=== PATIENT | male | born 1960 | race African-American/Black ===

== ENCOUNTER 2021-08-20 22:00 | Emergency (ER) | payer OTHER, SELFPAY ==
[2021-08-20 22:18] VITALS: BP 161/90; PULSE 94; RESP 18; TEMP 36.9; O2SAT 98
[2021-08-21] VITALS (14 sets, daily range): BP systolic 163–183; BP diastolic 91–109; PULSE 65–94; RESP 11–22; TEMP 36.7–37; O2SAT 96–99
--- NOTE | 2021-08-21 00:12 | ECG_ITS ---
Measurements Intervals [place] Rate: 85 P: 59 LA: 196 QRS: -14 QRSD: 101 T: 16 QT: 361 QTc: 429 Interpretive Statements SINUS RHYTHM POSSIBLE LEFT ATRIAL ENLARGEMENT DELAYED PRECORDIAL R/S TRANSITION POSSIBLE LEFT VENTRICULAR HYPERTROPHY MINIMAL Q WAVES- HIGH LATERAL LEADS BORDERLINE ECG Electronically Signed On 08-21-2021 6:32:49 CDT by Nathaniel Rivas D.O.
[2021-08-21 00:34] LABS: Basophils Percent Auto 0.4 % (0.2-1.2); Eosinophils Absolute Auto 0.1 K/mm3 (0-0.3); Eosinophils Percent Auto 0.7 % (0-4.4); Hematocrit 43.4 % (42.0-52.0); Hemoglobin 15.3 g/dL (14.0-18.0); Immature Granulocyte Absolute 0.03 K/mm3 (0.00-0.031); Immature Granulocyte Percent A 0.3 % (0-0.5); Lymphocytes Absolute Auto 1.04 K/mm3 (0.9-3.2); Lymphocytes Percent Auto 10.9 % (18.3-44.2); Mean Corpuscular HGB Conc 35.3 g/dl (32-36); Mean Corpuscular Hemoglobin 35.2 pg (26-34); Mean Corpuscular Volume 99.8 fl (80-100); Mean Platelet Volume 10.2 fl (7.4-10.4); Monocytes Absolute Auto 1.1 K/mm3 (0.1-0.6); Monocytes Percent Auto 11.2 % (2.6-8.5); Neutrophils Absolute Auto 7.3 K/mm3 (1.3-6.7); Neutrophils Percent Auto 76.5 % (45.5-73.1); Platelet Count Result 179 k/mm3 (150-375); Red Blood Count 4.35 M/mm3 (4.6-6.20); Red Cell Distribution Width 14.3 % (11.5-14.5); White Blood Count 9.6 K/mm3 (4.5-10.0)
[2021-08-21 00:51] LABS: Anion Gap 10 mmol/L (8-16); Blood Urea Nitrogen 14 mg/dL (9-20); Calcium 9.1 mg/dL (8.4-10.2); Carbon Dioxide 28 mmol/L (22-30); Chloride 95 mmol/L (98-107); Estimated CRCL calculation 68 ml/min; Estimated Glomerular Filt Rate > 60; Glucose 104 mg/dL (65-110); Potassium 4.4 mmol/L (3.4-5.0); Sodium 133 mmol/L (137-145)
[2021-08-21 01:14] LABS: Troponin I < 0.012 ng/mL (0.000-0.034)
--- NOTE | 2021-08-21 03:30 | ED.GENADULT ---
HPI - General Adult General Chief complaint: Unspecified Stated complaint: Smoked pot, high bp Time Seen by Provider: 08/20/21 23:53 History of Present Illness HPI narrative: Patient is a 60-year-old male who presents ER after feeling odd after smoking pot. Patient reports he still feels high. Apparently police arrived at his home and people said he was not acting right. He is unsure what they were concerned about and they had him leave. He is awake alert and oriented x3. No reports of chest pain or shortness of breath. Reports he would like to just rest. Related Data Allergies Allergy/AdvReac Type Severity Reaction Status Date / Time No Known Allergies Allergy Verified 08/21/21 00:06 Review of Systems Review of Systems: All systems reviewed & are unremarkable except as noted in HPI and below Constitutional: Constitutional: Denies chills, Denies fever(s) and Denies weakness Cardiovascular: Cardiovascular: Denies chest pain, Denies radiating jaw, neck or arm pain and Denies palpitations Respiratory: Respiratory: Denies cough, Denies dyspnea and Denies wheezing Gastrointestinal: Gastrointestinal: Denies abdominal pain, Denies diarrhea, Denies nausea and Denies vomiting Musculoskeletal: Musculoskeletal: Denies back pain, Denies myalgias and Denies muscle weakness Neurologic: Denies Abnormal speech present, Denies syncope and Denies focal weakness PMFSH Past Medical History Medical History (Updated 08/21/21 @ 03:41 by Juno Naidu MD) Hypertension Surgical History Surgical History (Updated 08/21/21 @ 03:39 by Juno Naidu MD) History of thoracotomy Social History Social History (Updated 08/21/21 @ 03:33 by Juno Naidu MD) Substance use type: marijuana Exam Narrative: GENERAL: Well-appearing, well-nourished, and in no acute distress. HEAD: Normocephalic, atraumatic. ENT: Mucous membranes moist. CHEST: Clear to auscultation. No respiratory distress. HEART: Regular rate and rhythm. Normal peripheral pulses. ABDOMEN: Soft, nontender, nondistended. EXTREMITIES: Normal range of motion. No edema. SKIN: Warm, dry, no rash. NEURO: Alert and oriented x3. PSYCH: Normal mood and affect. Course Course Emergency Course: Patient resting comfortably. Has no complaints for discharge home. Vital Signs Vital signs: Vital Signs Temperature 98.4 F 09/24/21 22:18 Pulse Rate 94 08/20/21 22:18 Respiratory Rate 18 08/20/21 22:18 Blood Pressure 161/90 H 08/20/21 22:18 Pulse Oximetry 98 08/20/21 22:18 Temperature 98.6 F 08/21/21 00:02 Pulse Rate 69 08/21/21 02:47 Respiratory Rate 16 08/21/21 02:47 Blood Pressure 182/109 H 08/21/21 02:47 Pulse Oximetry 98 08/21/21 02:47 Medical Decision Making Vital Signs Vital Signs: Vital Signs Temperature 98.4 F 08/20/21 22:18 Pulse Rate 94 08/20/21 22:18 Respiratory Rate 18 08/20/21 22:18 Blood Pressure 161/90 H 08/20/21 22:18 Pulse Oximetry 98 08/20/21 22:18 Temperature 98.6 F 08/21/21 00:02 Pulse Rate 69 08/21/21 02:47 Respiratory Rate 16 08/21/21 02:47 Blood Pressure 182/109 H 08/21/21 02:47 Pulse Oximetry 98 08/21/21 02:47 Lab Data Result diagrams: 08/21/21 00:27 08/21/21 00:27 Labs: Lab Results 08/21/21 08/21/21 08/21/21 Range/Units 00:27 00:27 00:27 WBC 9.6 (4.5-10.0) K/mm3 RBC 4.35 L (4.6-6.20) M/mm3 Hgb 15.3 (14.0-18.0) g/dL Hct 43.4 (42.0-52.0) % MCV 99.8 (80-100) fl MCH 35.2 H (26-34) pg MCHC 35.3 (32-36) g/dl RDW 14.3 (11.5-14.5) % Plt Count 179 (150-375) k/mm3 MPV 10.2 (7.4-10.4) fl Immature Gran % (Auto) 0.3 (0-0.5) % Neut % (Auto) 76.5 H (45.5-73.1) % Lymph % (Auto) 10.9 L (18.3-44.2) % Gulf % (Auto) 11.2 H (2.6-8.5) % Eos % (Auto) 0.7 (0-4.4) % Baso % (Auto) 0.4 (0.2-1.2) % Lymph # (Auto) 1.04 (0.9-3.2) K/mm3 [place] # (Auto) 1.1 H
== END 2021-08-21 03:48 | disposition home or self-care (01) ==
PROVIDERS: Emergency Provider Emergency Medicine
DX: F12.10 Cannabis abuse, uncomplicated (principal); I10 Essential (primary) hypertension; R94.31 Abnormal electrocardiogram [ECG] [EKG]
CPT/HCPCS: 36415; 80048; 84484; 85025; 93005; 99284

== ENCOUNTER 2022-05-14 23:49 | Emergency (ER) | payer OTHER, SELFPAY ==
--- NOTE | ~2022-05-14 | CT_ITS ---
EXAMINATION: CT brain wo con DATE: 05/15/2022 00:44 INDICATION: Found down. Unknown head injury. Ethanol. TECHNIQUE: Computed tomography (CT) of the head was performed without intravenous contrast. The mA wa s adjusted according to patient size. Iterative reconstruction technique was employed. Exam dose: 52 9.67 mGy-cm total exam DLP. COMPARISON: None FINDINGS: Bilateral carotid siphon internal carotid artery calcifications. There is nonspecific dimin ished attenuation of the cerebral white matter, likely due to chronic small vessel ischemic changes. No intracranial mass lesion or hemorrhage or recent cerebrovascular accident is evident. No fracture or bone destruction of the cranial vault. Included paranasal sinuses and mastoid air cell s are unremarkable. IMPRESSION: Cerebral atherosclerosis and chronic small vessel ischemic changes of the cerebral white matter Reviewed, dictated and finalized at [facility] Reviewed, dictated and finalized at [facility].
[2022-05-14 23:52] VITALS: BP 177/82; PULSE 76; RESP 19; TEMP 36.8; O2SAT 100
[2022-05-15 00:07] VITALS: PULSE 86; RESP 14; O2SAT 100
--- NOTE | 2022-05-15 00:11 | ECG_ITS ---
Measurements Intervals [place] Rate: 76 P: 60 AL: 180 QRS: -3 QRSD: 101 T: 33 QT: 361 QTc: 408 Interpretive Statements SINUS RHYTHM POSSIBLE LEFT ATRIAL ENLARGEMENT [-0.1mV P-WAVE IN V1/V2] POSSIBLE LEFT VENTRICULAR HYPERTROPHY [VOLTAGE CRITERIA PLUS LAE OR QRS WIDENING] ABNORMAL ECG COMPARED TO ECG 08/21/2021 00:44:32 NO SIGNIFICANT CHANGES Electronically Signed On 05-16-2022 12:56:34 CDT by Gilson Horne M.D.
[2022-05-15 00:15] VITALS: PULSE 70; RESP 11; O2SAT 100
[2022-05-15 00:16] VITALS: BP 179/100; PULSE 73; RESP 16; O2SAT 99
--- NOTE | 2022-05-15 00:23 | ED.SYNCOPE ---
HPI - Syncope General Chief Complaint: Syncope <REMY Ford Last Filed: 05/15/22 02:53> Stated Complaint: possible syncopal episode <REMY Ford Last Filed: 05/15/22 02:53> Time Seen by Provider: 05/14/22 23:51 <REMY Ford Last Filed: 05/15/22 02:53> Source: patient and EMS <REMY Ford Last Filed: 05/15/22 02:53> Mode of arrival: EMS <REMY Ford Last Filed: 05/15/22 02:53> Limitations: intoxication <REMY Ford Last Filed: 05/15/22 02:53> History of Present Illness HPI narrative: Patient is a 61-year-old male who presents the ED via EMS with report of fall, possible syncopal episode. Per EMS report, patient was found down on his porch outside by a neighbor. Unknown if he fell, had a syncopal episode, or how long he had been down on the ground. Patient does admit to drinking alcohol tonight. He currently denies any pain in the ED bed. Unable to tell me if he hit his head or loss consciousness. <REMY Ford Last Filed: 05/15/22 02:53> Related Data Allergies/Adverse Reactions: Allergies Allergy/AdvReac Type Severity Reaction Status Date / Time No Known Allergies Allergy Verified 08/21/21 00:06 <REMY Ford Last Filed: 05/15/22 02:53> Review of Systems Review of Systems: CONSTITUTIONAL: Denies fever. CARDIOVASCULAR: Denies chest pain. RESPIRATORY: Denies dyspnea. GASTROINTESTINAL: Denies abdominal pain. MUSCULOSKELETAL: Denies back pain, extremity pain NEUROLOGIC: Reports unknown head injury/LOC. <REMY Ford Last Filed: 05/15/22 02:53> ROS unobtainable: Yes unobtainable due to medical condition <REMY Ford Last Filed: 05/15/22 02:53> PMFSH Past Medical History Medical History: Medical History Hypertension <Terri Snider PA-C - Last Filed: 05/15/22 02:53> Surgical History Surgical History: Surgical History History of thoracotomy <Terri Snider PA-C - Last Filed: 05/15/22 02:53> Social History Social History: Social History (Updated 05/15/22 @ 00:27 by Terri Snider PA-C) Alcohol intake: current Substance use type: marijuana <Terri Snider PA-C - Last Filed: 05/15/22 02:53> Exam Narrative: GENERAL: Mildly disheveled appearing, well-nourished, non-toxic, in no acute distress. HEAD: Normocephalic, atraumatic. EYES: PERRL/EOMI, conjunctivae clear bilaterally. NECK: Supple. No adenopathy, no masses. RESPIRATORY: Airway patent. Intermittently slightly tachypneic, but respirations nonlabored. Clear to auscultation bilaterally, no rales, rhonchi, wheezing. CARDIOVASCULAR: Regular rate and rhythm without murmurs, rubs, or gallops. Peripheral pulses 2+ and equal bilaterally. ABDOMINAL: Soft, nontender, nondistended, no hepatosplenomegaly. Normoactive BS. MUSCULOSKELETAL: Moves all extremities. Strength/ROM intact without gross deformities. No chest wall tenderness palpation. SKIN: Warm, dry, normal color. No rashes. Minor circular skin tear on L forearm. NEURO: A&O X3. Speech somewhat garbled, but poor effort to enunciate. Cranial nerves II-XII grossly intact. No ataxic movements. PSYCHIATRIC: Appropriate mood and affect. Normal interaction. <Terri Snider PA-C - Last Filed: 05/15/22 02:53> Course [employer] COUNSELOR/PA Physician Supervision Patient seen and evaluated by me. Patient brought in by EMS after he was found over at his brothers house on the porch. Patient has been drinking alcohol today and admits to smoking some marijuana. Patient did not answer most questions. However he appears to be in no distress. Is noted to get up and walk over and use a urinal without any difficulty with a steady gait. Work-up and evaluation was obtained as noted. <Terri Snider PA-C - Last Filed: 05/15/22 02:53> Patient seen and eval
[2022-05-15 00:36] VITALS: PULSE 102; RESP 18
[2022-05-15 00:45] VITALS: PULSE 80; RESP 16
[2022-05-15 00:56] LABS: Basophils Percent Auto 0.2 % (0.2-1.2); Eosinophils Percent Auto 0.4 % (0-4.4); Hematocrit 42.7 % (42.0-52.0); Hemoglobin 14.8 g/dL (14.0-18.0); Immature Granulocyte Absolute 0.02 K/mm3 (0.00-0.031); Immature Granulocyte Percent A 0.2 % (0-0.5); Lymphocytes Absolute Auto 1.35 K/mm3 (0.9-3.2); Lymphocytes Percent Auto 15.2 % (18.3-44.2); Mean Corpuscular HGB Conc 34.7 g/dl (32-36); Mean Corpuscular Hemoglobin 34.2 pg (26-34); Mean Corpuscular Volume 98.6 fl (80-100); Mean Platelet Volume 9.4 fl (7.4-10.4); Monocytes Absolute Auto 1.3 K/mm3 (0.1-0.6); Monocytes Percent Auto 14.6 % (2.6-8.5); Neutrophils Absolute Auto 6.2 K/mm3 (1.3-6.7); Neutrophils Percent Auto 69.4 % (45.5-73.1); Platelet Count Result 208 k/mm3 (150-375); Red Blood Count 4.33 M/mm3 (4.6-6.20); Red Cell Distribution Width 14.2 % (11.5-14.5); White Blood Count 8.9 K/mm3 (4.5-10.0)
[2022-05-15 01:07] LABS: RBC Urine 0-2 /hpf (0-2); WBC Urine 0-3 /hpf
[2022-05-15 01:09] LABS: Add Urine Microscopic? YES; Appearance Urine Clear (Clear); Bilirubin Urine Negative (Negative); Blood Urine Trace-lysed (Negative); Color Urine Colorless (Yellow); Glucose Urine UA Negative (Negative); Ketones Urine Negative (Negative); Leukocyte Esterase Ur Negative LEU/UL (Negative); Nitrate Urine Negative (Negative); Protein Urine Negative (Negative); Specific Grav Ur <= 1.005 (1.001-1.035); Urobilinogen Urine 0.2 mg/dL (<2.0); pH Urine 5.5 (5.0-9.0)
[2022-05-15 01:13] LABS: Ethanol 105 mg/dL (<10)
[2022-05-15 01:15] LABS: Alanine Aminotransferase 21 U/L (6-50); Albumin Level 4.5 g/dL (3.5-5.1); Alkaline Phosphatase 126 U/L (38-126); Anion Gap 7 mmol/L (8-16); Aspartate Amino Transferase 36 U/L (17-59); Bilirubin,Total 0.5 mg/dL (0.2-1.3); Blood Urea Nitrogen 12 mg/dL (9-20); Calcium 8.5 mg/dL (8.4-10.2); Carbon Dioxide 26 mmol/L (22-30); Chloride 100 mmol/L (98-107); Estimated CRCL calculation 59 ml/min; Estimated Glomerular Filt Rate > 60; Glucose 105 mg/dL (65-110); Potassium 3.9 mmol/L (3.4-5.0); Sodium 133 mmol/L (137-145)
--- NOTE | 2022-05-15 04:13 | PC.NURSE ---
Left message for pt's brother Carlos to call back. ED RN and EDP updated.
--- NOTE | 2022-05-15 05:28 | PC.NURSE ---
RN able to get in contact with brother, Carlos, will be coming to the ER in about 20min to pick pt up. will leave in room sleeping until ride is here.
[2022-05-15 05:58] VITALS: PULSE 84; RESP 18; O2SAT 98
== END 2022-05-15 06:03 | disposition home or self-care (01) ==
PROVIDERS: Physician Assistant; Emergency Provider Emergency Medicine
DX: Z72.89 Other problems related to lifestyle (principal); I10 Essential (primary) hypertension
CPT/HCPCS: 36415; 70450; 80053; 80307; 81001; 85025; 93005; 99284